=== PATIENT | male | born 1995 | race Caucasian/White ===

== ENCOUNTER 2016-11-09 17:33 | Emergency (ER) | payer OTHER ==
[2016-11-09 19:50] LABS: HEMOGLOBIN 16.7 gm/dl (14.0-17.5); RED BLOOD COUNT 5.3 M/UL (4.20-5.50); WHITE BLOOD COUNT 8.5 K/UL (4.5-11.0)
[2016-11-09 20:27] LABS: BUN/CREATININE RATIO 12 (0-10)
== END 2016-11-09 22:53 | disposition home or self-care (01) ==
LOC: ER1 17:33
PROVIDERS: Emergency Medicine
DX: R10.13 Epigastric pain (principal); Z87.891 Personal history of nicotine dependence
CPT/HCPCS: 36415; 71020; 80053; 81001; 83690; 85025; 96360; 99284; J7030

== ENCOUNTER → 2021-03-17 | Outpatient (CLI) | payer OTHER ==
[~2021-03-17] MED LIST: AMOXICILLIN500 MG PO; FLOMAX0.4 MG PO; NORCO 7.5-3251 EACH PO; TORADOL 10 MG T10 MG PO
== END ==
LOC: RAD 12:26
DX: M79.645 Pain in left finger(s) (principal)
CPT/HCPCS: 73130

== ENCOUNTER 2021-11-30 01:42 | Emergency (ER) | payer OTHER ==
[2021-11-30 03:05] LABS: HEMOGLOBIN 14.7 gm/dl (14.0-17.5); RED BLOOD COUNT 4.69 M/UL (4.20-5.50); WHITE BLOOD COUNT 5.5 K/UL (4.5-11.0)
[2021-11-30 03:32] LABS: BUN/CREATININE RATIO 11 (0-10)
== END 2021-11-30 06:10 | disposition home or self-care (01) ==
LOC: ER1 01:42
DX: R00.2 Palpitations (principal); R42 Dizziness and giddiness
CPT/HCPCS: 71045; 80053; 82550; 82553; 84439; 84443; 84484; 85025; 93005; 99285

== ENCOUNTER → 2022-02-03 | Outpatient (CLI) | payer OTHER | LOC: KOH-I 14:05 | DX: R07.89 Other chest pain (principal); S29.011A Strain of muscle and tendon of front wall of thorax, initial encounter | CPT/HCPCS: 71046 ==